=== PATIENT | female | born 1990 | race Caucasian/White ===

== ENCOUNTER 2018-09-18 18:22 | Outpatient (CLI) | payer OTHER ==
[2018-09-18 19:47] LABS: ADD UMIC YES; UR ASCORBIC ACID NEGATIVE (NEGATIVE); UR BACTERIA FEW /HPF (NONE SEEN); UR BILIRUBIN (Dip) NEGATIVE (NEGATIVE); UR BLOOD (Dip) NEGATIVE (NEGATIVE); UR CLARITY CLEAR (CLEAR); UR COLOR STRAW (YELLOW); UR GLUCOSE (Dip) NEGATIVE (NEGATIVE); UR KETONES (Dip) NEGATIVE (NEGATIVE); UR LEUKOCYTE ESTERASE (Dip) TRACE Leu/ul (NEGATIVE); UR NITRITE (Dip) NEGATIVE (NEGATIVE); UR RBC 1 /HPF (0-5); UR SPECIFIC GRAVITY (Dip) 1.005 (1.003-1.030); UR SQUAMOUS EPITHELIAL CELL FEW /HPF (FEW); UR TOTAL PROTEIN (Dip) NEGATIVE (NEGATIVE); UR UROBILINOGEN (Dip) NEGATIVE (NEGATIVE); UR WBC 4 /HPF (0-5)
[2018-09-18 20:20] LABS: ADD MAN DIFF? NO
[2018-09-18 20:21] LABS: WHITE BLOOD COUNT 11.3 10^3/ul (4.8-10.8)
[2018-09-18 20:21] LABS: BASOPHILS % 0.3 % (0.0-2.0); EOSINOPHILS # 0.1 10^3/ul (0.0-0.5); HEMATOCRIT 30.6 % (37.0-47.0); HEMOGLOBIN 10.2 g/dl (12.0-16.0); LYMPHOCYTES # 1.6 10^3/ul (0.8-2.9); LYMPHOCYTES % 13.7 % (15.0-51.0); MEAN CORPUSCULAR HEMOGLOBIN 30.8 pg (29.0-33.0); MEAN CORPUSCULAR HGB CONC 33.3 g/dl (32.0-37.0); MEAN CORPUSCULAR VOLUME 92.4 fl (82.0-101.0); MEAN PLATELET VOLUME 11.1 fl (7.4-10.4); MONOCYTE # 1.3 10^3/ul (0.3-0.9); MONOCYTES % 11.7 % (0.0-11.0); NEUTROPHIL # 8.1 10^3/ul (1.6-7.5); NEUTROPHILS % 71.3 % (39.0-77.0); PLATELET COUNT 155 10^3/UL (140-415); RED BLOOD COUNT 3.31 10^6/ul (4.20-5.40); RED CELL DISTRIBUTION WIDTH 12.6 % (11.5-14.5)
[2018-09-18 20:40] LABS: INR 1.03; PROTIME 13.6 Sec (11.9-14.9); PT RATIO 1.1
[2018-09-18 20:41] LABS: PARTIAL THROMBOPLASTIN TIME 30.3 Sec (23.0-35.0)
[2018-09-18 20:42] LABS: ALANINE AMINOTRANSFERASE 16 IU/L (13-69); ALBUMIN 3.4 g/dl (3.3-4.9); ALBUMIN/GLOBULIN RATIO 1.09; ALKALINE PHOSPHATASE 86 IU/L (42-121); ANION GAP 10 (5-13); ASPARTATE AMINO TRANSFERASE 21 IU/L (15-46); BILIRUBIN,INDIRECT 0.4 mg/dl (0-1.1); BILIRUBIN,TOTAL 0.4 mg/dl (0.2-1.3); BLOOD UREA NITROGEN 4 mg/dl (7-20); CALCIUM 8.5 mg/dl (8.4-10.2); CARBON DIOXIDE 23 mmol/L (21-31); CHLORIDE 105 mmol/L (97-110); CREATININE 0.41 mg/dl (0.44-1.00); Estimated GFR > 60 mL/min (>60); GLUCOSE 78 mg/dl (70-220); POTASSIUM 3.3 mmol/L (3.5-5.1); SODIUM 138 mmol/L (135-144); TOTAL PROTEIN 6.5 g/dl (6.1-8.1); URIC ACID 3.6 mg/dl (3.1-7.9)
== END 2018-09-18 21:10 | disposition home or self-care (01) ==
LOC: OBT 18:22 → L-D 18:23 → OBT 21:10
DX: O26.893 Other specified pregnancy related conditions, third trimester (principal); Z3A.34 34 weeks gestation of pregnancy; R10.11 Right upper quadrant pain
CPT/HCPCS: 76815; 76818; 80053; 81001; 84560; 85025; 85610; 85730; 96372

== ENCOUNTER 2018-10-26 14:00 | Inpatient (IN) | payer OTHER ==
[2018-10-26] MEDS ORDERED: METHYLERGONOVINE 0.2 MG INJ IM (22:00)
[2018-10-26] MEDS ORDERED: MISOPROSTOL 200 MCG TAB PR (22:00)
[2018-10-26] MEDS ORDERED: CARBOPROST 250 MCG INJ IM (22:00)
[2018-10-26 22:02] LABS: ADD MAN DIFF? NO
[2018-10-26 22:04] LABS: WHITE BLOOD COUNT 9.5 10^3/ul (4.8-10.8)
[2018-10-26 22:04] LABS: BASOPHILS % 0.4 % (0.0-2.0); EOSINOPHILS # 0.1 10^3/ul (0.0-0.5); EOSINOPHILS % 1.3 % (0.0-7.0); HEMATOCRIT 30.1 % (37.0-47.0); LYMPHOCYTES # 1.3 10^3/ul (0.8-2.9); LYMPHOCYTES % 14.1 % (15.0-51.0); MEAN CORPUSCULAR HEMOGLOBIN 31.1 pg (29.0-33.0); MEAN CORPUSCULAR HGB CONC 33.2 g/dl (32.0-37.0); MEAN CORPUSCULAR VOLUME 93.5 fl (82.0-101.0); MONOCYTE # 1.1 10^3/ul (0.3-0.9); MONOCYTES % 11.8 % (0.0-11.0); NEUTROPHIL # 6.7 10^3/ul (1.6-7.5); PLATELET COUNT 163 10^3/UL (140-415); RED BLOOD COUNT 3.22 10^6/ul (4.20-5.40); RED CELL DISTRIBUTION WIDTH 12.6 % (11.5-14.5)
[2018-10-26 22:25] LABS: INR 1.04; PARTIAL THROMBOPLASTIN TIME 31.5 Sec (23.0-35.0); PROTIME 13.7 Sec (11.9-14.9); PT RATIO 1.1
[2018-10-26 23:03] LABS: HEPATITIS B SURFACE ANTIGEN NEGATIVE (NEGATIVE)
[2018-10-26] MEDS: LACTATED RINGER'S 1,000 ML IV (23:28)
[2018-10-27] MEDS: LACTATED RINGER'S 1,000 ML IV ×2 (06:02→12:34)
[2018-10-27] MEDS ORDERED: PROPOFOL 200 MG INJ (07:00)
[2018-10-27] MEDS: CITRIC ACID/NA CITRATE 30 ML CUP PO (13:35)
[2018-10-27] MEDS: CEFAZOLIN 2 GM/50 ML (PMX) 50 ML IVPB (13:36)
[2018-10-27] MEDS ORDERED: METOCLOPRAMIDE 10 MG INJ (14:01)
[2018-10-27] MEDS ORDERED: BUPIVACAINE 0.75%/DEXT (SPINAL) 2 ML INJ (14:01)
[2018-10-27] MEDS ORDERED: morphine SULFATE/PF (10 MG/10 ML) INJ (14:01)
[2018-10-27] MEDS ORDERED: KETOROLAC 30 MG INJ (14:01)
[2018-10-27] MEDS ORDERED: ONDANSETRON 4 MG INJ (14:01)
[2018-10-27] MEDS ORDERED: OXYTOCIN 30 UNITS/LR 500 ML IV ×3 (14:01→17:30)
[2018-10-27] MEDS ORDERED: FENTAnyl 50 MCG/ML VIAL (14:28)
[2018-10-27] MEDS ORDERED: morphine 2 MG INJ IV ×3 (15:30)
[2018-10-27] MEDS ORDERED: KETOROLAC 30 MG INJ IV (15:30)
[2018-10-27] MEDS ORDERED: DIPHENHYDRAMINE 50 MG INJ IV ×2 (15:30)
[2018-10-27] MEDS ORDERED: NALOXONE (0.4 MG/ML) INJ IV (15:30)
[2018-10-27] MEDS ORDERED: morphine (1 MG/ML) 10ML SYRINGE IV ×3 (15:30)
[2018-10-27] MEDS ORDERED: ONDANSETRON 4 MG INJ IV ×2 (15:30)
[2018-10-27] MEDS: OXYTOCIN 30 UNITS/LR 500 ML IV ×2 (16:09→19:56)
[2018-10-27] MEDS ORDERED: METHYLERGONOVINE 0.2 MG INJ IM (17:30)
[2018-10-27] MEDS ORDERED: HYDROCODONE/APAP (5/325) TAB PO (17:30)
[2018-10-27] MEDS ORDERED: MISOPROSTOL 200 MCG TAB PR (17:30)
[2018-10-27] MEDS ORDERED: CARBOPROST 250 MCG INJ IM (17:30)
[2018-10-27] MEDS ORDERED: OXYCODONE/ACETAMINOPHEN (5/325) TAB PO ×2 (17:30)
[2018-10-27 19:41] LABS: RAPID PLASMA REAGIN NONREACTIVE (NR)
[2018-10-27] MEDS: SENNA/DOCUSATE NA (8.6MG/50MG) TAB PO (21:25)
[2018-10-27] MEDS: CEFAZOLIN 1 GM/50 ML (PMX) 50 ML IVPB (22:30)
[2018-10-28] MEDS: OXYTOCIN 30 UNITS/LR 500 ML IV ×5 (01:27→10:57)
[2018-10-28] MEDS: KETOROLAC 30 MG INJ IV ×3 (02:46→14:25)
[2018-10-28 07:17] LABS: ADD MAN DIFF? NO
[2018-10-28 07:22] LABS: WHITE BLOOD COUNT 11.2 10^3/ul (4.8-10.8)
[2018-10-28 07:22] LABS: BASOPHILS % 0.3 % (0.0-2.0); EOSINOPHILS # 0.1 10^3/ul (0.0-0.5); EOSINOPHILS % 0.8 % (0.0-7.0); HEMATOCRIT 25.4 % (37.0-47.0); HEMOGLOBIN 8.6 g/dl (12.0-16.0); LYMPHOCYTES # 1.1 10^3/ul (0.8-2.9); MEAN CORPUSCULAR HEMOGLOBIN 31.2 pg (29.0-33.0); MEAN CORPUSCULAR HGB CONC 33.9 g/dl (32.0-37.0); MONOCYTE # 1.4 10^3/ul (0.3-0.9); MONOCYTES % 12.7 % (0.0-11.0); NEUTROPHIL # 8.4 10^3/ul (1.6-7.5); NEUTROPHILS % 75.2 % (39.0-77.0); PLATELET COUNT 138 10^3/UL (140-415); RED BLOOD COUNT 2.76 10^6/ul (4.20-5.40); RED CELL DISTRIBUTION WIDTH 12.6 % (11.5-14.5)
[2018-10-28] MEDS: SENNA/DOCUSATE NA (8.6MG/50MG) TAB PO ×2 (08:44→21:28)
[2018-10-28] MEDS: LANOLIN HPA 1 PKT TOP (08:45)
[2018-10-28] MEDS: IBUPROFEN 600 MG TAB PO ×2 (17:45→23:40)
[2018-10-29] MEDS: HYDROCODONE/APAP (5/325) TAB PO ×3 (01:16→18:22)
[2018-10-29] MEDS: IBUPROFEN 600 MG TAB PO ×3 (05:50→17:35)
[2018-10-29] MEDS: OXYTOCIN 30 UNITS/LR 500 ML IV ×4 (09:27→21:27)
[2018-10-29] MEDS: SENNA/DOCUSATE NA (8.6MG/50MG) TAB PO ×2 (09:47→21:33)
[2018-10-29] MEDS: NA PHOSPHATE/BIPHOS 133 ML ENEMA PR (14:30)
[2018-10-30] MEDS: IBUPROFEN 600 MG TAB PO ×3 (00:02→12:09)
[2018-10-30] MEDS: OXYTOCIN 30 UNITS/LR 500 ML IV ×4 (01:27→13:27)
[2018-10-30] MEDS: HYDROCODONE/APAP (5/325) TAB PO ×2 (03:45→10:35)
[2018-10-30] MEDS: DIPHTH/TET/ACEL PERTUSS (ADULT) 0.5 ML VIAL IM* (07:55)
[2018-10-30] MEDS: SENNA/DOCUSATE NA (8.6MG/50MG) TAB PO (10:34)
== END 2018-10-30 14:25 | disposition home or self-care (01) | DRG 788 ==
LOC: OBT 14:00 → L-D 10-27 13:34 → PP1 10-27 17:22 → L-D 18:28 → OBT 18:00 → L-D 18:00
PROVIDERS: Obstetrics & Gynecology
PROC: 10D00Z1 Extraction of Products of Conception, Low, Open Approach (ICD-10-PCS; principal; 2018-10-27)
DX: O48.0 Post-term pregnancy (principal); O34.211 Maternal care for low transverse scar from previous cesarean delivery; Z3A.40 40 weeks gestation of pregnancy; Z37.0 Single live birth
CPT/HCPCS: 76816; 76818; 85025; 85610; 85730; 86592; 86850; 86900; 86901; 87340; 99464